=== PATIENT | female | born 1985 | race Caucasian/White ===

== ENCOUNTER → 2017-06-13 | Outpatient (CLI) | payer OTHER | END | disposition home or self-care (01) | LOC: RAD 12:55 | PROVIDERS: ATTEND Surgery | DX: I80.02 Phlebitis and thrombophlebitis of superficial vessels of left lower extremity (principal); K40.90 Unilateral inguinal hernia, without obstruction or gangrene, not specified as recurrent; I77.1 Stricture of artery; R60.0 Localized edema | CPT/HCPCS: 76857 ==